=== PATIENT | male | born 1965 | race Caucasian/White ===

== ENCOUNTER 2017-05-19 23:46 | Emergency (ER) | payer SELFPAY ==
[~2017-05-19] VITALS: Ht 175.3 cm; Wt 78.0 kg
[~2017-05-19 23:46] MED LIST: METH750T2 PO; PERC5TAB12 PO; PRED10PA PO; SERO100T PO; TRAZ100 PO; ULTR50TA PO
[2017-05-20 00:12] VITALS: BP 130/79; PULSE 63; RESP 15; TEMP 97.7; O2SAT 96
[2017-05-20] MEDS ORDERED: TRAZ1TAB45 PO ×2 (00:28)
[2017-05-20] MEDS ORDERED: CHLO25CA9 PO ×2 (00:28)
[2017-05-20] MEDS ORDERED: SERO300T PO ×2 (00:28)
[2017-05-20] MEDS ORDERED: VIST50CA PO ×2 (00:28)
[2017-05-20] MEDS ORDERED: CLON.5 PO ×2 (00:28)
--- NOTE | 2017-05-20 00:28 | PD ---
HPI Chief Complaint: Medical Clearance Time Seen by Provider: 00:24 Travel History International Travel<30 days: No Contact w/Intl Traveler<30days: No Traveled to known affect area: No History of Present Illness HPI This is a 52-year-old male who presents to the emergency department with an episode of high blood pressure while he was at [facility] in an alcohol detox program. They administered clonidine and told him to come to the emergency department. He denies any chest pain, numbness, weakness, difficulty walking or difficulty talking. He says he has a history of high blood pressure and it always spikes when he is coming off of alcohol. 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 History Social History Alcohol Use: No Tobacco Use: No Allergies-Medications (Allergen,Severity, Reaction): Coded Allergies: codeine (Unverified Allergy, Mild, 05/20/17) penicillin G (Unverified Allergy, Mild, 05/20/17) Reported Meds & Prescriptions Reported Meds & Active Scripts Active Ultram (Tramadol HCl) 50 Mg Tab 50 Mg PO Q4H PRN Robaxin (Methocarbamol) 750 Mg Tab 750 Mg PO QID Sterapred Ds (Prednisone) 10 Mg Lan 10 Mg PO DIRECTED Percocet 5-325 mg (Oxycodone/Acetaminophen) Oxycodone 5/325 Acetaminophen Tab 1 Tab PO Q6H PRN Reported Trazodone Hcl (Trazodone HCl) 100 Mg Tab 100 Mg PO HS Seroquel 100 mg (Quetiapine Fumarate) 100 Mg Tab 100 Mg PO DAILY Review of Systems General / Constitutional: No: Fever, Chills Cardiovascular: No: Chest Pain or Discomfort Physical Exam Narrative GENERAL: Well-appearing, no acute distress, nontoxic SKIN: Warm and dry. HEAD: Atraumatic. Normocephalic. ENT: No nasal bleeding or discharge. Moist mucous membranes MUSCULOSKELETAL: No obvious deformities. No clubbing. No cyanosis. No edema. NEUROLOGICAL: Awake and alert. No obvious cranial nerve deficits. Motor grossly within normal limits. Normal speech. PSYCHIATRIC: Appropriate mood and affect; insight and judgment normal. Data Data Last Documented VS Vital Signs Date Time Temp Pulse Resp B/P (MAP) Pulse Ox O2 Delivery O2 Flow Rate FiO2 05/20/17 00:20 63 15 05/20/17 00:12 97.7 130/79 (96) 96 MDM Medical Screen Exam Complete: Yes Emergency Medical Condition: No Narrative Course This is a 52-year-old male who presents the emergency department having had an episode of high blood pressure at [facility] which has since subsided. He denies any symptoms of hypertensive urgency or emergency and he didn't want to be evaluated in the emergency Department. I don't think there is a emergency medical condition at this time. Primary Impression: Encounter for medical screening examination Jannie Ferreira MD May 20, 2017 00:28
--- NOTE | 2017-05-20 00:28 | PD ---
HPI Chief Complaint: Medical Clearance Time Seen by Provider: 00:24 Travel History International Travel<30 days: No Contact w/Intl Traveler<30days: No Traveled to known affect area: No History of Present Illness HPI This is a 52-year-old male who presents to the emergency department with an episode of high blood pressure while he was at [facility] in an alcohol detox program. They administered clonidine and told him to come to the emergency department. He denies any chest pain, numbness, weakness, difficulty walking or difficulty talking. He says he has a history of high blood pressure and it always spikes when he is coming off of alcohol. 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 History Social History Alcohol Use: No Tobacco Use: No Allergies-Medications (Allergen,Severity, Reaction): Coded Allergies: codeine (Unverified Allergy, Mild, 05/20/17) penicillin G (Unverified Allergy, Mild, 05/20/17) Reported Meds & Prescriptions Reported Meds & Active Scripts Active Ultram (Tramadol HCl) 50 Mg Tab 50 Mg PO Q4H PRN Robaxin (Methocarbamol) 750 Mg Tab 750 Mg PO QID Sterapred Ds (Prednisone) 10 Mg Lan 10 Mg PO DIRECTED Percocet 5-325 mg (Oxycodone/Acetaminophen) Oxycodone 5/325 Acetaminophen Tab 1 Tab PO Q6H PRN Reported Trazodone Hcl (Trazodone HCl) 100 Mg Tab 100 Mg PO HS Seroquel 100 mg (Quetiapine Fumarate) 100 Mg Tab 100 Mg PO DAILY Review of Systems General / Constitutional: No: Fever, Chills Cardiovascular: No: Chest Pain or Discomfort Physical Exam Narrative GENERAL: Well-appearing, no acute distress, nontoxic SKIN: Warm and dry. HEAD: Atraumatic. Normocephalic. ENT: No nasal bleeding or discharge. Moist mucous membranes MUSCULOSKELETAL: No obvious deformities. No clubbing. No cyanosis. No edema. NEUROLOGICAL: Awake and alert. No obvious cranial nerve deficits. Motor grossly within normal limits. Normal speech. PSYCHIATRIC: Appropriate mood and affect; insight and judgment normal. Data Data Last Documented VS Vital Signs Date Time Temp Pulse Resp B/P (MAP) Pulse Ox O2 Delivery O2 Flow Rate FiO2 05/20/17 00:20 63 15 05/20/17 00:12 97.7 130/79 (96) 96 MDM Medical Screen Exam Complete: Yes Emergency Medical Condition: No Narrative Course This is a 52-year-old male who presents the emergency department having had an episode of high blood pressure at [facility] which has since subsided. He denies any symptoms of hypertensive urgency or emergency and he didn't want to be evaluated in the emergency Department. I don't think there is a emergency medical condition at this time. Primary Impression: Encounter for medical screening examination Jannie Ferreira MD May 20, 2017 00:28
--- NOTE | 2017-05-21 21:03 | EKG ---
Date Performed: 05/20/2017 Time Performed: 00:20:44 PTAGE: 52 years EKG: Sinus rhythm NORMAL ECG PREVIOUS TRACING : 01/29/2015 12.23 DOCTOR: Gisel Stevens Interpretating Date/Time 05/21/2017 20:54:51
--- NOTE | 2017-05-21 21:03 | EKG ---
Date Performed: 05/20/2017 Time Performed: 00:20:44 PTAGE: 52 years EKG: Sinus rhythm NORMAL ECG PREVIOUS TRACING : 01/29/2015 12.23 DOCTOR: Gisel Stevens Interpretating Date/Time 05/21/2017 20:54:51
--- NOTE | 2017-05-21 21:03 | EKG ---
Date Performed: 05/20/2017 Time Performed: 00:20:44 PTAGE: 52 years EKG: Sinus rhythm NORMAL ECG PREVIOUS TRACING : 01/29/2015 12.23 DOCTOR: Gisel Stevens Interpretating Date/Time 05/21/2017 20:54:51
== END 2017-05-20 00:35 | disposition left against medical advice (07) ==
LOC: NEPC 23:46
DX: R03.0 Elevated blood-pressure reading, without diagnosis of hypertension (principal); Z88.5 Allergy status to narcotic agent; Z88.0 Allergy status to penicillin; Z79.899 Other long term (current) drug therapy
CPT/HCPCS: 93005; 99281